=== PATIENT | male | born 1975 | race American Indian/Alaskan Native ===

== ENCOUNTER 2016-09-08 07:37 | Inpatient (IN) | payer OTHER ==
[2016-09-08 08:42] LABS: BUN/Creatinine Ratio 12.5; Calcium 9.2 mg/dL (8.4-10.2); Chloride 93.1 mmol/L (98-107); Potassium 5.1 mmol/L (3.6-5.0)
[2016-09-08 08:50] LABS: Basophils % (Auto) 0.8 % (0.0-1.8); Eosinophils % (Auto) 0.4 % (0.0-4.3); Hematocrit 45.7 % (35.5-45.6); Hemoglobin 14.8 gm/dl (11.8-15.2); Mean Corpuscular HGB Conc 32 % (32-34); Mean Corpuscular Hemoglobin 30 pg (28-32); Mean Corpuscular Volume 91 fl (84-94); Platelet Count 218 K/mm3 (140-440); Red Blood Count 5.01 M/mm3 (3.65-5.03); Red Cell Distribution Width 13.9 % (13.2-15.2); White Blood Count 5.5 K/mm3 (4.5-11.0)
[2016-09-08] MEDS ORDERED: D50W (25GM) IV PRN ×3 (10:58→11:57)
[2016-09-08] MEDS ORDERED: NACL 0.9% 1000 ML 1,000 ML IV ONE ×2 (10:59→13:00)
--- NOTE | 2016-09-08 11:00 | Emergency Department Report ---
ED General Adult HPI - General Chief complaint: Dyspnea/Respdistress Stated complaint: SIN/DIZZY Time Seen by Provider: 09/08/16 10:45 Source: patient, RN notes reviewed Mode of arrival: Ambulatory Limitations: No Limitations - History of Present Illness Initial comments: This is a 41-year-old male. He is previously unknown to me. He has a past medical history of diabetes and epilepsy. He does not have a local primary care doctor secondary to insurance reasons. He presents to the ER with fatigue, dizziness, weakness, polyuria, polydipsia. This is been going on for the past 3-4 days. His symptoms are constant. Worse with physical exertion. It decreased with rest. He is not having pain. -: Gradual Consistency: constant Improves with: rest Worsens with: movement Associated Symptoms: loss of appetite, malaise, shortness of breath, weakness. denies: confusion, chest pain - Related Data Home Medications Medication Instructions Recorded Confirmed Last Taken Dapagliflozin Propanediol [Farxiga] 10 mg PO DAILY 09/08/16 09/08/16 09/07/16 levETIRAcetam [Keppra TAB] 500 mg PO BID 09/08/16 09/08/16 09/07/16 Allergies Allergy/AdvReac Type Severity Reaction Status Date / Time No Known Allergies Allergy Unverified 09/08/16 07:46 ED Review of Systems ROS: Stated complaint: SIN/DIZZY Other details as noted in HPI Constitutional: malaise, weakness Eyes: denies: vision change ENT: denies: epistaxis Respiratory: denies: cough Cardiovascular: denies: chest pain Endocrine: increased thirst, increased urine Gastrointestinal: denies: abdominal pain Genitourinary: denies: dysuria Musculoskeletal: denies: back pain Skin: denies: lesions Neurological: weakness ED Past Medical Hx - Past Medical History Previous Medical History?: Yes Hx Hypertension: Yes Hx Diabetes: Yes Hx Arthritis: Yes (Right hip) Hx Asthma: Yes - Surgical History Past Surgical History?: No - Social History Smoking Status: Never Smoker Substance Use Type: Prescribed - Medications Home Medications: Home Medications Medication Instructions Recorded Confirmed Last Taken Type Dapagliflozin Propanediol [Farxiga] 10 mg PO DAILY 09/08/16 09/08/16 09/07/16 History levETIRAcetam [Keppra TAB] 500 mg PO BID 09/08/16 09/08/16 09/07/16 History ED Physical Exam - General Limitations: No Limitations General appearance: alert, in no apparent distress - Head Head exam: Present: atraumatic, normocephalic - Eye Eye exam: Present: normal appearance, EOMI. Absent: nystagmus - ENT ENT exam: Present: normal exam, normal orophraynx, mucous membranes moist, normal external ear exam - Neck Neck exam: Present: normal inspection, full ROM. Absent: tenderness, meningismus - Respiratory Respiratory exam: Present: normal lung sounds bilaterally. Absent: respiratory distress, wheezes, rales, rhonchi, stridor, chest wall tenderness, accessory muscle use, decreased breath sounds, prolonged expiratory - Cardiovascular Cardiovascular Exam: Present: regular rate, normal rhythm, normal heart sounds. Absent: systolic murmur, diastolic murmur, rubs, gallop - GI/Abdominal GI/Abdominal exam: Present: soft, normal bowel sounds. Absent: distended, tenderness, guarding, rebound, rigid, pulsatile mass - Rectal Rectal exam: Present: deferred - Extremities Exam Extremities exam: Present: normal inspection, full ROM, normal capillary refill. Absent: pedal edema, joint swelling, calf tenderness - Back Exam Back exam: Present: normal inspection, full ROM. Absent: tenderness, CVA tenderness (R), CVA tenderness (L), muscle spasm, paraspinal tenderness, vertebral tenderness - Neurological Exam Neurological exam: Present: alert, oriented X3, normal gait, other (Extraocular movements intact. Tongue midline. No facial droop. Facial sensation intact to light touch in the V1, V2, V3 distribution bilaterally. 5 and 5 strength in 4 extremities.. Sensation is intact to light touch in 4 extremities.). Absent : motor sensory deficit - Psychiatric Psychiatric exam: Present: normal affect, normal mood - Skin Skin exam: Present: warm, dry, intact, normal color. Absent: rash ED Course Vital Signs 09/08/16 09/08/16 09/08/16 07:46 11:22 13:46 Temperature 97.9 F 98.1 F 98.8 F Pulse Rate 95 H 66 76 Respiratory 18 16 16 Rate Blood Pressure 125/70 Blood Pressure 109/63 109/66 [Right] O2 Sat by Pulse 97 100 100 Oximetry 09/08/16 09/08/16 15:42 18:10 Temperature 98.9 F 98.4 F Pulse Rate 76 64 Respiratory 16 16 Rate Blood Pressure Blood Pressure 105/75 110/72 [Right] O2 Sat by Pulse 100 100 Oximetry ED Medical Decision Making - Lab Data Result diagrams: 09/08/16 08:05 09/08/16 11:18 Vital Signs 09/08/16 09/08/16 07:46 11:22 Temperature 97.9 F 98.1 F Pulse Rate 95 H 66 Respiratory 18 16 Rate Blood Pressure 125/70 Blood Pressure 109/63 [Right] O2 Sat by Pulse 97 100 Oximetry Lab Results 09/08/16 09/08/16 09/08/16 Range/Units 07:46 08:05 08:05 WBC 5.5 (4.5-11.0) K/mm3 RBC 5.01 (3.65-5.03) M/mm3 Hgb 14.8 (11.8-15.2) gm/dl Hct 45.7 H (35.5-45.6) % MCV 91 (84-94) fl MCH 30 (28-32) pg MCHC 32 (32-34) % RDW 13.9 (13.2-15.2) % Plt Count 218 (140-440) K/mm3 Lymph % (Auto) 40.4 H (13.4-35.0) % [place] % (Auto) 8.0 H (0.0-7.3) % Eos % (Auto) 0.4 (0.0-4.3) % Baso % (Auto) 0.8 (0.0-1.8) % Lymph # 2.2 (1.2-5.4) K/mm3 [place] # 0.4 (0.0-0.8) K/mm3 Eos # 0.0 (0.0-0.4) K/mm3 Baso # 0.0 (0.0-0.1) K/mm3 Seg Neutrophils % 50.4 (40.0-70.0) % Seg Neutrophils # 2.8 (1.8-7.7) K/mm3 VBG pH (7.320-7.420) Sodium 137 (137-145) mmol/L Potassium 5.1 H (3.6-5.0) mmol/L Chloride 93.1 L (98-107) mmol/L Carbon Dioxide 12 L (22-30) mmol/L Anion Gap 37 mmol/L BUN 20 (9-20) mg/dL Creatinine 1.6 H (0.8-1.5) mg/dL Estimated GFR 47 ml/min BUN/Creatinine Ratio 12.50 % Glucose 342 H (75-100) mg/dL POC Glucose 340 H (70-105) Calcium 9.2 (8.4-10.2) mg/dL Phosphorus (2.5-4.5) mg/dL Magnesium (1.7-2.3) mg/dL Urine Color (Yellow) Urine Turbidity (Clear) Urine pH (5.0-7.0) Ur Specific [place] (1.003-1.030) Urine Protein (Negative) mg/dL Urine Glucose (UA) (Negative) mg/dL Urine Ketones (Negative) mg/dL Urine Blood (Negative) Urine Nitrite (Negative) Urine Bilirubin (Negative) Urine Urobilinogen (<2.0) mg/dL Ur Leukocyte Esterase (Negative) Urine WBC (Auto) (0.0-6.0) /HPF Urine RBC (Auto) (0.0-6.0) /HPF Urine Mucus /HPF 09/08/16 09/08/16 09/08/16 Range/Units 08:05 10:47 11:15 WBC (4.5-11.0) K/mm3 RBC (3.65-5.03) M/mm3 Hgb (11.8-15.2) gm/dl Hct (35.5-45.6) % MCV (84-94) fl MCH (28-32) pg MCHC (32-34) % RDW (13.2-15.2) % Plt Count (140-440) K/mm3 Lymph % (Auto) (13.4-35.0) % [place] % (Auto) (0.0-7.3) % Eos % (Auto) (0.0-4.3) % Baso % (Auto) (0.0-1.8) % Lymph # (1.2-5.4) K/mm3 [place] # (0.0-0.8) K/mm3 Eos # (0.0-0.4) K/mm3 Baso # (0.0-0.1) K/mm3 Seg Neutrophils % (40.0-70.0) % Seg Neutrophils # (1.8-7.7) K/mm3 VBG pH 7.217 L (7.320-7.420) Sodium (137-145) mmol/L Potassium (3.6-5.0) mmol/L Chloride (98-107) mmol/L Carbon Dioxide (22-30) mmol/L Anion Gap mmol/L BUN (9-20) mg/dL Creatinine (0.8-1.5) mg/dL Estimated GFR ml/min BUN/Creatinine Ratio % Glucose (75-100) mg/dL POC Glucose 287 H (70-105) Calcium (8.4-10.2) mg/dL Phosphorus (2.5-4.5) mg/dL Magnesium (1.7-2.3) mg/dL Urine Color Straw (Yellow) Urine Turbidity Clear (Clear) Urine pH 5.0 (5.0-7.0) Ur Specific [place] 1.027 (1.003-1.030) Urine Protein <15 mg/dl (Negative) mg/dL Urine Glucose (UA) >=500 (Negative) mg/dL Urine Ketones 80 (Negative) mg/dL Urine Blood Sm (Negative) Urine Nitrite Neg (Negative) Urine Bilirubin Neg (Negative) Urine Urobilinogen < 2.0 (<2.0) mg/dL Ur Leukocyte Esterase Neg (Negative) Urine WBC (Auto) < 1.0 (0.0-6.0) /HPF Urine RBC (Auto) 2.0 (0.0-6.0) /HPF Urine Mucus Few /HPF 09/08/16 09/08/16 Range/Units 11:18 11:18 WBC (4.5-11.0) K/mm3 RBC (3.65-5.03) M/mm3 Hgb (11.8-15.2) gm/dl Hct (35.5-45.6) % MCV (84-94) fl MCH (28-32) pg MCHC (32-34) % RDW (13.2-15.2) % Plt Count (140-440) K/mm3 Lymph % (Auto) (13.4-35.0) % [place] % (Auto) (0.0-7.3) % Eos % (Auto) (0.0-4.3) % Baso % (Auto) (0.0-1.8) % Lymph # (1.2-5.4) K/mm3 [place] # (0.0-0.8) K/mm3 Eos # (0.0-0.4) K/mm3 Baso # (0.0-0.1) K/mm3 Seg Neutrophils % (40.0-70.0) % Seg Neutrophils # (1.8-7.7) K/mm3 VBG pH (7.320-7.420) Sodium 138 (137-145) mmol/L Potassium 5.0 (3.6-5.0) mmol/L Chloride 93.4 L (98-107) mmol/L Carbon Dioxide 10 L (22-30) mmol/L Anion Gap 40 mmol/L BUN 22 H (9-20) mg/dL Creatinine 1.6 H (0.8-1.5) mg/dL Estimated GFR 57 ml/min BUN/Creatinine Ratio 13.75 % Glucose 284 H (75-100) mg/dL POC Glucose (70-105) Calcium 9.1 (8.4-10.2) mg/dL Phosphorus 4.10 (2.5-4.5) mg/dL Magnesium 2.20 (1.7-2.3) mg/dL Urine Color (Yellow) Urine Turbidity (Clear) Urine pH (5.0-7.0) Ur Specific [place] (1.003-1.030) Urine Protein (Negative) mg/dL Urine Glucose (UA) (Negative) mg/dL Urine Ketones (Negative) mg/dL Urine Blood (Negative) Urine Nitrite (Negative) Urine Bilirubin (Negative) Urine Urobilinogen (<2.0) mg/dL Ur Leukocyte Esterase (Negative) Urine WBC (Auto) (0.0-6.0) /HPF Urine RBC (Auto) (0.0-6.0) /HPF Urine Mucus /HPF - EKG Data -: EKG Interpreted by Wy EKG shows normal: sinus rhythm, axis Rate: normal - EKG Data When compared to previous EKG there are: previous EKG unavailable 09/08/16 11:57. Normal sinus, 85 bpm, normal axis, QTC 487 ms, not morphologically consistent with STEMI. - Radiology Data Radiology results: report reviewed, image reviewed X-ray of the chest is negative for acute disease - Medical Decision Making Differential diagnosis: Dehydration, pneumonia, urinary tract infection, metabolic acidosis, diabetic ketoacidosis, hyperosmolar state Assessment and plan: 41-year-old male with relative hypoglycemia, anion gap acidosis, acidotic venous pH, most likely diabetic ketoacidosis. I appreciated the patient's finger sticks and blood glucose on the high 200s to low 300s, but his anion gaps have been 37 and 40 respectively, with serum bicarbonate of 12 and 10. Clinical picture suggestive of diabetic ketoacidosis. He will be started on the DKA pathway. Insulin bolus will be held, but he will be started on an insulin drip until his anion gap closes. X-ray of the chest negative, urinalysis negative, no pulmonary embolus or DVT risk factors, low risk by well' s criteria, perc negative. The case is presented to the Hospital physician, Dr. Levi, who accepts the patient to his service for DKA. Critical Care Time: Yes Critical care time in (mins) excluding proc time.: 35 Critical care attestation.: If time is entered above; I have spent that time in minutes in the direct care of this critically ill patient, excluding procedure time. Critical Care Time: Critical care time includes multiple bedside evaluations, interpretation of laboratory studies, radiology studies, time spent managing critically ill patient with anion gap acidosis consistent with diabetic ketoacidosis, requiring consultation with hospital medicine, and initiation of insulin drip. This does not include procedure time. ED Disposition Clinical Impression: DKA (diabetic ketoacidoses) Qualifiers: Diabetes mellitus type: due to underlying condition Diabetes mellitus complication detail: without coma Qualified Code(s): E08.10 - Diabetes mellitus due to underlying condition with ketoacidosis without coma Disposition: 09 OP ADMIT IP TO THIS HOSP Is pt being admited?: Yes Condition: Good
--- NOTE | 2016-09-08 11:09 | Admit Criteria Form ---
Admission Criteria Documentation: GENERAL ADMISSION CRITERIA (Place 'X' for any and all applicable criteria): Admission is indicated for ANY ONE of the following: [ ]I. Hemodynamic instability as indicated by ANY ONE of the following(1)(2) (3)(4)(5): [ ]a) Vital sign abnormality not readily corrected by appropriate treatment within 12 to 24 hours indicated by ANY ONE of the following: [ ]i) Hypotension [ ]ii) Symptomatic Tachycardia unresponsive to treatment (eg , analgesia, fluids, sedation as indicated) [ ]iii) Orthostatic vital sign changes unresponsive to treatment (eg, fluids) [ ]b) Vital sign abnormality that is severe indicated by ANY ONE of the following: [ ]i) Inadequate perfusion indicated by ANY ONE of the following: [ ]1) Lactic acidosis (greater than 2 mmol/L) [ ]2) New abnormal capillary refill (greater than 3 seconds) [ ]3) Other metabolic acidosis (arterial pH less than 7.35) not otherwise explained [ ]4) Reduced urine output [ ]5) Altered mental status [ ]6) Myocardial Ischemia [ ]v) Mean arterial pressure[A] less than 60 mm Hg [ ]vi) Mean arterial pressure[A] less than 70 mm Hg after 30 minutes of appropriate treatment (eg, fluid resuscitation) [ ]vii) IV inotropic or vasopressor medication required to maintain adequate blood pressure or perfusion [ ]viii) Sustained heart rate greater than 120 beats per minute in adult or child 6 years or older[B]] [ ]II. Hypertension requiring inpatient treatment as indicated by ANY ONE of the following(6)(7)(8): [ ]a) SBP greater than 220 mm Hg or DBP greater than 120 mm Hg despite treatment [ ]b) SBP greater than 140 mm Hg or DBP greater than 100 mm Hg with evidence of acute end organ damage as indicated by ANY ONE of the following: [ ]i) Encephalopathy [ ]ii) Acute renal failure as indicated by new onset of ANY ONE of the following(9)(10)(11)(12)(13): [ ]1) A 3-fold rise in serum creatinine from baseline [ ]2) Serum creatinine greater than 4 mg/dL ( 354 micromoles/L) with acute rise greater than 0.5 mg/dL (44.2 micromoles/L) [ ]3) Reduction of more than 75% in estimated glomerular filtration rate from baseline [ ]4) Estimated glomerular filtration rate less than 35 mL/min/1.73m2 (0.59 mL/sec/1.73m2) in child up to 18 years of age [ ]5) Cessation of urine output indicated by ALL of the following: [ ]A. Adequate volume status [ ]B. Inadequate urine output as indicated by ANY ONE of the following: [ ]a. Urine output less than 0.3 mL/kg/hr for 24 hours [ ]b. Anuria (urine output less than 0.1 mL/kg/hr) for 12 hours [ ]iii) Aortic dissection [ ]iv) Myocardial ischemia [ ]v) Left ventricular heart failure [ ]vi) Retinal hemorrhage [ ]vii) Other significant finding [ ]c) Hypertension in child requiring inpatient treatment as indicated by ALL of the following(14)(15)(16): [ ]i) Outpatient treatment not effective, not available, or not appropriate [ ]ii) SBP or DBP greater than 95th percentile for age [ ]iii) Evidence of acute end organ damage as indicated by ANY ONE of the following: [ ]1) Altered mental status [ ]2) Acute renal failure as indicated by new onset of ANY ONE of the following(9)(10)(11)(12)(13): [ ]A. A 3-fold rise in serum creatinine from baseline [ ]B. Serum creatinine greater than 4 mg/dL (354 micromoles/L) with acute rise greater than 0.5 mg/dL (44.2 micromoles/L) [ ]C. Reduction of more than 75% in estimated glomerular filtration rate from baseline [ ]D. Estimated glomerular filtration rate less than 35 mL/min/1.73m2 (0.59 mL/sec/1.73m2)in child up to 18 years of age [ ]E. Cessation of urine output indicated by ALL of the following: [ ]a. Adequate volume status [ ]b. Inadequate urine output as indicated by ANY ONE of the following: [ ]1) Urine output less than 0.3 mL/kg/hr for 24 hours [ ]2) Anuria (urine output less than 0.1 mL/kg/hr) for 12 hours [ ]3) Severe headache [ ]4) Visual disturbance [ ]5) Retinal hemorrhage [ ]6) Other significant finding [ ]III. Acute cardiac or peripheral ischemia as indicated by ANY ONE of the following: [ ]a) Acute coronary syndrome(17)(18) [ ]b) Acute peripheral ischemia (eg, pulseless, cool, mottled, or cyanotic extremity)(19) [ ]IV. Cardiac arrhythmias or findings of immediate concern indicated by ANY ONE of the following(20)(21): [ ]a) Heart rhythms that are inherently dangerous or unstable indicated by ANY ONE of the following(22)(23)(24): [ ]i) Resuscitated ventricular fibrillation or cardiac arrest [ ]ii) Ventricular escape rhythm [ ]iii) Sustained ventricular tachycardia (30 seconds or more of ventricular rhythm at greater than 100 beats per minute) [ ]iv) Nonsustained ventricular tachycardia and ANY ONE of the following: [ ]1) Suspected cardiac ischemia as cause or consequence of ventricular tachycardia [ ]2) In setting of acute myocarditis [ ]b) Unstable cardiac conduction defects indicated by ANY ONE of the following(24)(25)(26): [ ]i) Type II second-degree atrioventricular block [ ]ii) Third-degree atrioventricular block [ ]iii) New-onset left bundle branch block with suspected myocardial ischemia [ ]c) Any heart rhythm and ANY ONE of the following(22)(23)(27)(28)( 29): [ ] i) Continuous long-term ECG monitoring needed (eg, initiation of drug requiring monitoring for more than 24 hours) [ ] ii) Patient has automatic implanted cardioverter defibrillator that is repeatedly firing, malfunctioning, or in need of immediate adjustment of settings beyond the scope of ambulatory or observation care. [ ]d) Heart rhythms of concern due to ANY ONE of the following: [ ]i) Hypotension [ ]ii) Respiratory distress [ ]iii) Association with other significant symptoms (eg, bradycardia with syncope or ongoing dizziness, supraventricular tachycardia with chest pain) (27)(28) (30) [ ] V. Severe heart failure as indicated by ANY ONE of the following ( 31)(32): [ ]a) Respiratory distress [ ]b) Hypotension [ ]c) Anasarca (refractory to outpatient therapy) [ ]d) Cardiac arrhythmias of immediate concern [ ]e) Myocardial ischemia [ ]. Respiratory abnormalities, including ANY ONE of the following(33)(34) (35)(36): [ ]a) Respiratory rate greater than 30 breaths per minute unresponsive to treatment [A] [ ]b) New saturation of arterial oxygen less than 90% [ ]c) New partial pressure of carbon dioxide greater than 44 mm Hg ( 5.9 kPa) [ ]d) Supplemental oxygen or respiratory treatments needed that are new or not performable at other levels of care [ ]e) New-onset cyanosis [ ]f) Inability to protect airway [ ]g) Chronic lung disease with severe deterioration (not responsive to emergency and observation care treatment as appropriate) as indicated by ANY ONE of the following(34)(36 ): [ ]i) SaO2 5% below baseline in patient with chronic hypoxemia [ ]ii) New requirement for supplemental oxygen to keep SaO2 at baseline or acceptable level [ ]iii) Required supplemental oxygen performable only in acute inpatient setting [ ]iv) Severe airflow or ventilation abnormalities [ ]v) Previously mobile patient unable to walk between rooms [ ]vi Inability to eat or sleep due to dyspnea [ ]vii) Rapid rate of exacerbation onset [ ]viii) Altered mental status ]VII. Severe airflow or ventilation abnormalities (not responsive to emergency and observation care treatment as appropriate) as indicated by ANY ONE of the following(33)(34)(35)(37): [ ]a) PCO2 greater than 42 mm Hg (5.6 kPa) and pH less than 7.35 (new ) [ ]b) Documented PCO2 increased more than 5 mm Hg (0.7 kPa) from disease baseline [ ]c) Airflow measurements [B] less than 60% of previous best or predicted (eg, peak expiratory flow rate less than 300 L/minute) despite intensive emergent treatment [C] [ ]d) Required respiratory treatments that are performable only in acute inpatient setting [ ]VIII. Impending or actual respiratory arrest ( Also use Respiratory Failure GRG for severe respiratory disease and long-term mechanical ventilation patients) [ ]IX. Neurologic abnormalities, including ANY ONE of the following: [ ]a) New findings that suggest ANY ONE of the following: [ ]i) ROAD PATCHER infection(38) [ ]ii) Cerebral bleeding, ischemia, or vasospasm(39)(40) [ ]iii) Increased intracranial pressure, hydrocephalus, or cerebral edema(41)(42)(43) [ ]iv) Spinal cord injury(44) [ ]b) Uncontrolled seizures(45) [ ]c) New-onset coma (eg, Junior coma scale score less than 9) or unexplained abnormal mental status (eg, Junior coma scale score less than 14) [D](41)(46)(47) [ ]X. New-onset severe neurologic findings requiring inpatient care; examples include(42)(48)(49): [ ]a) Papilledema [ ]b) Cerebral edema [ ]c) Mass effect on CT scan [ ]XI. Suspected acute intra-abdominal process with peritoneal signs, abdominal mass, or similar findings (50)(51)(52) [X ]XII. Severe physiologic disorder remaining after emergency or observation level care (as appropriate) as indicated by ANY ONE of the following (53): [ ]a) Significant dehydration [ X]b) Diabetic ketoacidosis [ ]c) Hyperglycemic hyperosmolar state (eg, osmolality greater than 320 mOsm/kg (mmol/kg) [ ]d) Hypoglycemia [ ]e) Other (new) acid-base disorder with pH less than 7.35 or greater than 7.5(54) [ ]f) Thyroid storm (55) [ ]g) Myxedema coma (55) [ ]XIII. Abdominal abnormalities with ANY ONE of the following(56)(57): [ ]a) Absent bowel sounds with complete ileus [ ]b) Signs of intestinal obstruction or peritonitis [E] [ ]c) Nausea and vomiting that cannot be controlled with outpatient or observation care [ ]XIV. Acute renal failure as indicated by new onset of ANY ONE of the following(9)(10)(11)(12)(13): [ ]a) A 3-fold rise in serum creatinine from baseline [ ]b) Serum creatinine greater than 4 mg/dL (354 micromoles/L) with acute rise greater than 0.5 mg/dL (44.2 micromoles/L) [ ]c) Reduction of more than 75% in estimated glomerular filtration rate from baseline [ ]d) Estimated glomerular filtration rate less than 35 mL/min/ 1.73m2 (0.59 mL/sec/1.73m2) in child up to 18 years of age [ ]e) Cessation of urine output indicated by ALL of the following: [ ]i) Adequate volume status [ ]ii) Inadequate urine output as indicated by ANY ONE of the following: [ ]1) Urine output less than 0.3 mL/kg/hr for 24 hours [ ]2) Anuria (urine output less than 0.1 mL/kg/hr) for 12 hours [ ]XV. Significant uremic complications as indicated by ANY ONE of the following(58)(59)(60): [ ]a) Outpatient therapy is ineffective or not feasible for ANY ONE of the following: [ ]i) Severe heart failure [ ]ii) Severehypertension [ ]iii) Pleural effusion [ ]iv) Pericarditis or pericardial effusion [ ]b) Cardiac arrhythmias of immediate concern [ ]c) Intractable nausea or vomiting [ ]d) Recurrent seizures [ ]e) Encephalopathy [ ]f) Bleeding abnormalities (eg, platelet dysfunction) with active (eg, gastrointestinal) bleeding [ ]g) Dialysis indicated before long-term access or ambulatory arrangements can be made [ ]h) Significant metabolic or electrolyte abnormalities (eg, severe acidosis or hyperkalemia) [ ]XVI. High fever or other high-risk infection situation as indicated by ANY ONE of the following(61)(62)(63)(64): [ ]a) Outpatient and observation care antimicrobial treatment unavailable, not effective, or not appropriate [ ]b) Documented bacteremia [ ]c) Temperature greater than 40.5 degrees C (104.9 degrees F) ( oral) [ ]d) Temperature greater than 39.5 degrees C (103.1 degrees F) ( oral) or less than 36 degrees C (96.8 degrees F) (rectal) that does not respond to e treatment and observation care [ ] XVII. Temperature less than 95 degrees F (35 degrees C)(rectal)(65) [ ] XVIII. Severe nutritional abnormalities as indicated by ALL of the following (66)(67): [ ]a) Inability to tolerate or establish sufficient oral or other enteral nutrition in outpatient setting [ ]b) Parenteral nutrition regimen need that must be implemented on inpatient basis [ ] XIX. Severe electrolyte abnormalities indicated by ALL of the following(68) (69)(70): [ ]a) Electrolytes and associated findings are not as expected for patient baseline or acceptable treatment effects. [ ]b) Severe abnormalities indicated by ANY ONE of the following: [ ]i) Sodium less than 130 mEq/L (mmol/L) (new) [ ]ii)Sodium less than 135 mEq/L (mmol/L) with ANY ONE of the following: [ ]1) Uncorrectable (to near normal or chronic baseline) after trial of outpatient and emergency treatment [ ]2) Altered mental status [ ]3) Seizures [ ]4) Severe medical etiology requiring inpatient management (eg, heart failure, hypovolemia) [ ]iii) Sodium greater than 155 mEq/L (mmol/L) [ ]iv) Sodium greater than 150 mEq/L (mmol/L) with ANY ONE of the following: [ ]1) Uncorrectable (to near normal or chronic baseline) with outpatient and emergency treatment [ ]2) Altered mental status [ ]3) Seizures [ ]4) Severe medical etiology (eg, hypovolemia, diabetes insipidus) [ ]v) Potassium less than 2.5 mEq/L (mmol/L) despite outpatient and emergency treatment [ ]vi) Potassium less than 3 mEq/L (mmol/L) with ANY ONE of the following: [ ]1) Weakness [ ]2) Cardiac abnormality (eg, arrhythmia, conduction disturbance) [ ]3) Cardiac ischemia [ ]4) Ileus [ ]5) Ongoing medical cause requiring inpatient management (eg, acute renal wasting or SIADH) [ ]6) Other severe symptoms [ ]vii) Potassium greater than 6.5 mEq/L (mmol/L) [ ]viii) Potassium greater than 5 mEq/L (mmol/L) with ANY ONE of the following: [ ]1) Uncorrectable (to near normal or chronic baseline) with outpatient and emergency treatment [ ]2) Severe ECG findings [F] [ ]3) Acute worsening of renal failure (creatinine greater than 2.5 mg/dL (221 micromoles/L) or significant elevation for age and size) [ ]4) Severe weakness [ ]5) Severe medical etiology (eg, hemolysis, infection, drug overdose) [ ]ix) Calcium less than 7 mg/dL (1.75 mmol/L) despite outpatient and emergency treatment (72) [ ]x) Calcium less than 8 mg/dL (2 mmol/L) with significant symptoms or findings; examples include(72): [ ]1) Altered mental status [ ]2) Muscle spasms [ ]3) Seizures [ ]4) Breathing difficulty [ ]5) Cardiac abnormality (eg, arrhythmia or conduction disturbance) [ ]xi) Calcium greater than 14 mg/dL (3.5 mmol/L)(72) [ ]xii) Calcium greater than 12 mg/dL (3 mmol/L) with ANY ONE of the following(72): [ ]1) Uncorrectable (to near normal or chronic baseline) with outpatient and emergency treatment [ ]2) Significant dehydration or hypovolemia as indicated by ALL of the following(70)(73)(74): [ ]A. Not resolved with initial treatments [ ]B. Clinically significant dehydration as indicated by ANY ONE of the following: [ ]a. Vomiting refractory to outpatient treatment (ie, precluding oral rehydration) [ ]b. Inability to drink [ ]c. Hypernatremia or other electrolyte abnormality unable to be corrected with outpatient and emergency treatment [ ]d. Failure to remain hydrated with outpatient therapy [ ]e. Reduced urine output [ ]f. Hypotension [ ]g. Serious cause for dehydration requiring acute hospitalization (eg, bowel obstruction, increased intracranial pressure, infectious cause) [ ]h. Child with ANY ONE of the following(75): [ ]1) Severe abdominal tenderness [ ]2) Adequate care not available at home [ ]3) Severe dehydration ( greater than 9% loss of body weight) [ ]4) Significant symptoms or findings; examples include: [ ]A. Altered mental status [ ]B. Cardiac abnormality (eg, arrhythmia, conduction disturbance) [ ]C. Malignant etiology requiring inpatient treatment [ ]xiii) Phosphorus less than 1 mg/dL (0.32 mmol/L) [ ]xiv) Phosphorus less than 1.5 mg/dL (0.48 mmol/L) with ANY ONE of the following: [ ]1) Patient unresponsive to outpatient and emergency treatment [ ]2) Significant symptoms or findings; examples include: [ ]A. Weakness [ ]B. Altered mental status [ ]C. Breathing difficulty [ ]D. Seizures [ ]E. Rhabdomyolysis [ ]xv) Phosphorus greater than 10 mg/dL (3.2 mmol/L) [ ]xvi) Phosphorus greater than 4.5 mg/dL (1.45 mmol/L) (new) with ANY ONE of the following: [ ]1) Severe medical etiology (eg, crush injury, acute renal failure) [ ]2) Associated hypocalcemia with significant findings; examples include: [ ]A. Neurologic symptoms [ ]B. Altered mental status [ ]C. Muscle spasms [ ]D. Seizures [ ]E. Breathing difficulty [ ]F. Cardiac abnormality (eg, arrhythmia, conduction disturbance) [ ]xvii) Magnesium less than 1 mg/dL (0.41 mmol/L) [ ]xviii) Magnesium less than 1.5 mg/dL (0.62 mmol/L) with ANY ONE of the following: [ ]1) Patient unresponsive to outpatient and emergency treatment [ ]2) Associated hypocalcemia with significant findings; examples include: [ ]A. Altered mental status [ ]B. Muscle spasms [ ]C. Seizures [ ]D. Breathing difficulty [ ]E. Cardiac abnormality (eg, arrhythmia , conduction disturbance) [ ]3) Associated hypokalemia (potassium less than 3 mEq/L (mmol/L)) with risk of arrhythmia [ ]xix) Magnesium greater than 4 mEq/L (2 mmol/L) [ ]xx) Magnesium greater than 2.5 mEq/L (1.25 mmol/L) with significant symptoms or findings; examples include: [ ]1) Weakness [ ]2) Altered mental status [ ]3) Cardiac abnormality (eg, arrhythmia, conduction disturbance) [ ]4) Breathing difficulty [ ]5) Severe medical etiology (eg, renal failure, hypovolemia) [ ]xxi) Uric acid greater than 20 mg/dL (1190 micromoles/L)(76) [ ]xxii) Uric acid greater than 8 mg/dL (476 micromoles/L) with significant symptoms or findings of tumor lysis syndrome; examples include(76): [ ]1) Creatinine greater than 1.5 times upper limit of normal [ ]2) Cardiac abnormality (eg, arrhythmia, conduction disturbance) [ ]3) Seizure [ ]XX. Acute blood loss causing significant abnormality as indicated by ANY ONE of the following(77)(78): [ ]a) Hemoglobin less than 10 g/dL (100 g/L) (not baseline) [ ]b) Hematocrit less than 30% (0.30) (not baseline) [ ]c) Repeat hematocrit decreased more than 2% (0.02) [ ]d) Uncontrolled bleeding [ ]XXI. Severe anemia indicated by ANY ONE of the following(78)(79): [ ]a) Altered mental status [ ]b) Chest pain [ ]c) Exertional dyspnea [ ]d) Syncope [ ]e) Other findings suggesting inadequate perfusion [ ]f) Treatment with transfusion or volume replacement is ineffective at resolving ANY ONE of the following [G]: [ ]i) Tachycardia for age [ ]ii) Orthostatic vital sign changes as indicated by ANY ONE of the following(80): [ ]1) Fall in SBP of 20 mm Hg or more 1 to 3 minutes after patient sits or stands from recumbent position [ ]2) Fall in DBP of 10 mm Hg or more 1 to 3 minutes after patient sits or stands from recumbent position [ ]XXII. High-risk low platelet count as indicated by ANY ONE of the following( 81)(82): [ ]a) Severe or life-threatening bleeding (eg, intracranial, major gastrointestinal, or extensive mucosal bleeding), with any reduced platelet count [ ]b) Platelet count less than 20,000/mm3 (20 x109/L) with any active bleeding [ ]c) Platelet count less than 10,000/mm3 (10 x109/L) with minor purpura or petechiae [ ]d) Platelet count less than 5000/mm3 (5 x109/L) [ ]e) Low platelet count with hemolytic anemia [ ]XXIII. Disseminated intravascular coagulation(77)(83) [ ]XXIV. Severe adverse drug or systemic toxin reaction requiring inpatient treatment; examples include(84)(85): [ ]a) Serotonin syndrome(86) [ ]b) Neuroleptic malignant syndrome(86) [ ]c) Cholinergic syndrome with severe symptoms (eg, bronchorrhea, weakness, mental status changes, seizures) [ ]d) Sympathetic syndrome with severe symptoms (eg, seizures, mental status changes, cardiac dysrhythmias) [ ]e) Anticholinergic syndrome [ ]XXV. Severe pain requiring acute inpatient management as indicated by ALL of the following (87)(88)(89): [ ]a) Continuous or frequent (eg, every 2 to 4 hours) parenteral analgesics required [H] [ ]b) Rapid improvement expected from treatment or acute intervention (eg, surgery, anesthesia procedure) [ ]XXVI.Severe behavioral health issues judged unmanageable at a lower level of care (eg, residential) in a patient who is ANY ONE of the following(91) [ ]a) Acutely suicidal [ ]b) A danger to self (eg, self-mutilating or suicidal behavior) [ ]c) A danger to others (eg, assaultive or homicidal behavior) [ ]d) Incapacitated because of grave disability (eg, inability to provide for self at lower level of care) (92) [ ]XXVII. Inpatient monitoring needed; examples include(1)(3)(87)(93)(94)(95)(96 ): [ ]a) Vital signs, neurologic signs, or vascular checks more frequently than every 4 hours [ ]b) Cardiac or respiratory monitoring beyond the scope (eg, over 24 hours) of observation care [ ]c) Pulmonary artery catheter monitoring [ ]d) Suspected compartment syndrome(97) (98) [ ]e) Cerebral bleeding, hydrocephalus, or vasospasm monitoring [ ]f) Increased intracranial pressure or cerebral edema monitoring [ ]g) monitoring [ ]XXVIII. Treatment requiring inpatient care; examples include: [ ]a) IV fluid to replace significant ongoing losses (greater than 3 L/m2 per day)(53) [ ]b) High concentration oxygen (greater than 40%)(33)(99)(100) [ ]c) Frequent respiratory therapy (more frequently than every 4 hours) to maintain airflow rates greater than 60% of baseline(33)(99)(100) [ ]d) Epidural analgesia(87) [ ]e) IV anticoagulation, vasoactive, or antiarrhythmic medication(19 )(23) [ ]f) Acute thrombolytics (generally require 24 hours of observation )(101)(102) [ ]XXIX. Emergency procedures needed; examples include: [ ]a) Emergency inpatient surgery [ ]b) Temporary pacemaker placement(103) [ ]c) Chest tube placement with active evacuation (eg, suction, drainage)(104) [ ]d) Emergent cardioversion(105) [ ]e) Emergent cardiac or vascular procedures (eg, cardiac catheterization, angioplasty) (17)(18) [ ]f) Emergent dialysis access placement and institution(10)(106) [ ]g) Emergent pericardiocentesis(107) [ ]h) Emergent plasmapheresis or leukapheresis(83) [ ]i) Emergent tracheostomy The original [employer] content created by [employer] has been revised. The portions of the content which have been revised are identified through the use of italic text or in bold, and [employer] has neither reviewed nor approved the modified material. All other unmodified content is copyright [employer]. Please see references footnoted in the original [employer] edition 2016 Admission Criteria Met: Yes
[2016-09-08 11:10] LABS: Bilirubin,Urine NEG (Negative); Blood,Urine SM (Negative); Ketones,Urine 80 mg/dL (Negative); Leukocyte Esterase,Urine NEG (Negative); Mucus,Urine FEW /HPF; Nitrite,Urine NEG (Negative); Protein,Urine <15 mg/dL mg/dL (Negative); Urobilinogen,Urine < 2.0 mg/dL (<2.0); WBC,Urine < 1.0 /HPF (0.0-6.0)
--- NOTE | 2016-09-08 11:18 | XRay Report ---
AP CHEST: HISTORY: Short of breath AP view of the chest demonstrates a normal mediastinal and cardiac contour with clear lungs and normal bony and soft tissue structures. IMPRESSION: Unremarkable AP chest.
[2016-09-08 11:39] LABS: BUN/Creatinine Ratio 13.75; Calcium 9.1 mg/dL (8.4-10.2); Chloride 93.4 mmol/L (98-107); Magnesium 2.2 mg/dL (1.7-2.3); Phosphorous 4.1 mg/dL (2.5-4.5)
[2016-09-08] MEDS: NovoLIN R 100 UNITS in NACL 0.9% 99 ML IV SCH ×4 (11:40→17:44)
[2016-09-08] MEDS ORDERED: D5/0.45NS 1,000 ML IV ONE (11:42)
--- NOTE | 2016-09-08 11:56 | History and Physical Report ---
History of Present Illness Chief complaint: I feel sick, my sugar is out of control History of present illness: 41 YO Male with DM, HTN, OA, Asthma presents to ED for evaluation. Pt states that he has experienced polydipsia, polyuria, polypphagia, fatigue and nausea for the past 5 days with worsening symptoms over the past 1 day. Pt acknowledges medication noncompliance due to loss of insurance. Pt denies fever , chills, CP, Palpitations, syncope, vertigo, seizures, productive cough, skin rash, or recent ill contacts. Pt seen and evaluated in ED and found to be in DKA. DKA protocol initiated in ED. Past History Past Medical History: arthritis, diabetes, hypertension, other (seizure disorder ) Past Surgical History: No surgical history, Other (reviewed) Social history: . denies: smoking, alcohol abuse, prescription drug abuse, IV drug use Family history: diabetes, hypertension Medications and Allergies Allergies Allergy/AdvReac Type Severity Reaction Status Date / Time No Known Allergies Allergy Unverified 09/08/16 07:46 Active Meds: Active Medications Dextrose (D50w (25gm)) 0 ml IV PRN PRN PRN Reason: Hypoglycemia Sodium Chloride (Nacl 0.9% 1000 Ml) 1,000 mls @ 999 mls/hr IV BOLUS ONE Stop: 09/08/16 11:59 Last Admin: 09/08/16 11:19 Dose: 999 mls/hr Insulin Human Regular 100 (units/ Sodium Chloride) 100 mls @ 1 mls/hr IV TITR HARI; 1 UNITS/HR PRN Reason: Protocol Last Admin: 09/08/16 11:40 Dose: 5 units/hr, 5 mls/hr Review of Systems All systems: negative Constitutional: no fever Ears, nose, mouth and throat: no ear pain Cardiovascular: no chest pain Respiratory: no cough Gastrointestinal: nausea, no diarrhea Genitourinary Male: no dysuria Rectal: no pain Musculoskeletal: no neck stiffness Integumentary: no deferred Neurological: no head injury Psychiatric: no anxiety Endocrine: polyphagia, polydipsia, polyuria Hematologic/Lymphatic: no easy bruising Allergic/Immunologic: no urticaria Exam - Constitutional Vitals: Temp Pulse Resp BP Pulse Ox 98.1 F 66 16 109/63 100 09/08/16 11:22 09/08/16 11:22 09/08/16 11:22 09/08/16 11:22 09/08/16 11:22 General appearance: Present: mild distress - EENT Eyes: Present: PERRL ENT: hearing intact, clear oral mucosa - Neck Neck: Present: supple, normal ROM - Respiratory Respiratory effort: normal Respiratory: bilateral: CTA - Cardiovascular Heart Sounds: Present: S1 & S2. Absent: rub, click - Extremities Extremities: pulses symmetrical, No edema Peripheral Pulses: within normal limits - Abdominal General gastrointestinal: Present: soft, non-tender, non-distended, normal bowel sounds Male genitourinary: Present: normal - Integumentary Integumentary: Present: clear, dry, clammy, decreased turgor - Musculoskeletal Musculoskeletal: generalized weakness - Psychiatric Psychiatric: appropriate mood/affect, intact judgment & insight - Neurologic Neurologic: CNII-XII intact, moves all extremities Results - Labs CBC & Chem 7: 09/08/16 08:05 09/08/16 11:18 Labs: Abnormal lab results 09/08/16 09/08/16 09/08/16 Range/Units 07:46 08:05 08:05 Hct 45.7 H (35.5-45.6) % Lymph % (Auto) 40.4 H (13.4-35.0) % [place] % (Auto) 8.0 H (0.0-7.3) % VBG pH (7.320-7.420) Potassium 5.1 H (3.6-5.0) mmol/L Chloride 93.1 L (98-107) mmol/L Carbon Dioxide 12 L (22-30) mmol/L BUN (9-20) mg/dL Creatinine 1.6 H (0.8-1.5) mg/dL Glucose 342 H (75-100) mg/dL POC Glucose 340 H (70-105) 09/08/16 09/08/16 09/08/16 Range/Units 08:05 11:15 11:18 Hct (35.5-45.6) % Lymph % (Auto) (13.4-35.0) % [place] % (Auto) (0.0-7.3) % VBG pH 7.217 L (7.320-7.420) Potassium (3.6-5.0) mmol/L Chloride 93.4 L (98-107) mmol/L Carbon Dioxide 10 L (22-30) mmol/L BUN 22 H (9-20) mg/dL Creatinine 1.6 H (0.8-1.5) mg/dL Glucose 284 H (75-100) mg/dL POC Glucose 287 H (70-105) Assessment and Plan - Patient Problems (1) DKA (diabetic ketoacidoses) Current Visit: Yes Status: Acute Qualifiers: Diabetes mellitus type: due to underlying condition Diabetes mellitus complication detail: without coma Qualified Code(s): E08.10 - Diabetes mellitus due to underlying condition with ketoacidosis without coma Plan to address problem: DKA protocol: IVF, Insulin drip, monitor anion gap, serial bmp, moitor uop q shift, The high probability of a clinically significant, sudden or life threatening deterioration of the [endocrine, renal, pulmonary] system(s) required my full and direct attention, intervention and personal management. The aggregate critical care time was [65] minutes. This time is in addition to time spent performing reported procedures but includes the following: [x] Data Review and interpretation [x] Patient assessment and monitoring of vital signs [x] Documentation [x] Medication orders and management (2) Metabolic acidosis Current Visit: Yes Status: Acute Plan to address problem: IVF replacement, treat DKA, serial bmp, (3) ARF (acute renal failure) Current Visit: Yes Status: Acute Qualifiers: Acute renal failure type: A Plan to address problem: IVF replacement, monitor uop q shift, supportive care, repeat bmp, (4) Noncompliance Current Visit: Yes Status: Acute Plan to address problem: Pt counseled regarding ADA diet, carbohydrate counting, and medication compliance. (5) DVT prophylaxis Current Visit: Yes Status: Acute
[2016-09-08] MEDS ORDERED: NovoLIN R 100 UNITS in NACL 0.9% 99 ML IV SCH (12:00)
[2016-09-08] MEDS: D5/0.45NS 1,000 ML IV SCH ×2 (13:44→21:33)
[2016-09-08 20:37] LABS: Blood Urea Nitrogen 15 mg/dL (9-20); Calcium 8.4 mg/dL (8.4-10.2); Carbon Dioxide 18 mmol/L (22-30); Chloride 104.8 mmol/L (98-107); Glucose 111 mg/dL (75-100); Potassium 4.1 mmol/L (3.6-5.0); Sodium 143 mmol/L (137-145)
[2016-09-08 20:38] LABS: Anion Gap 24 mmol/L
[2016-09-08 23:18] LABS: Anion Gap 24 mmol/L; BUN/Creatinine Ratio 12.72; Blood Urea Nitrogen 14 mg/dL (9-20); Calcium 8.4 mg/dL (8.4-10.2); Carbon Dioxide 16 mmol/L (22-30); Chloride 106.5 mmol/L (98-107); Glucose 112 mg/dL (75-100); Potassium 3.8 mmol/L (3.6-5.0); Sodium 143 mmol/L (137-145)
[2016-09-09 04:31] LABS: Anion Gap 20 mmol/L; BUN/Creatinine Ratio 10.83; Blood Urea Nitrogen 13 mg/dL (9-20); Calcium 8.3 mg/dL (8.4-10.2); Carbon Dioxide 19 mmol/L (22-30); Chloride 107.8 mmol/L (98-107); Glucose 104 mg/dL (75-100); Potassium 3.8 mmol/L (3.6-5.0); Sodium 143 mmol/L (137-145)
[2016-09-09] MEDS: D5/0.45NS 1,000 ML IV SCH (04:58)
[2016-09-09] MEDS ORDERED: D5/0.45NS 1,000 ML with KCL 20 MEQ IV SCH (11:30)
--- NOTE | 2016-09-09 11:38 | Consultation ---
History of Present Illness - Reason for Consult Consult date: 09/09/16 DKA/ICU care Requesting physician: FLAKITA LITTLEJOHN - History of Present Illness 41 y/o male admitted with DKA Past History Past Medical History: arthritis, diabetes, hypertension, other (seizure disorder ) Past Surgical History: No surgical history, Other (reviewed) Social history: . denies: smoking, alcohol abuse, prescription drug abuse, IV drug use Family history: diabetes, hypertension Medications and Allergies Allergies Allergy/AdvReac Type Severity Reaction Status Date / Time No Known Allergies Allergy Unverified 09/08/16 07:46 Home Medications Medication Instructions Recorded Confirmed Last Taken Type Dapagliflozin Propanediol [Farxiga] 10 mg PO DAILY 09/08/16 09/08/16 09/07/16 History levETIRAcetam [Keppra TAB] 500 mg PO BID 09/08/16 09/08/16 09/07/16 History Active Meds: Active Medications Dextrose (D50w (25gm)) 0 ml IV PRN PRN PRN Reason: Hypoglycemia Insulin Human Regular 100 (units/ Sodium Chloride) 100 mls @ 1 mls/hr IV TITR HARI; 1 UNITS/HR PRN Reason: Protocol Potassium Chloride 20 meq/ (Dextrose/Sodium Chloride) 1,010 mls @ 150 mls/hr IV DIRECT HARI Review of Systems All systems: negative Exam - Constitutional Vitals: Temp Pulse Resp BP Pulse Ox 98.4 F 59 L 19 113/67 99 09/09/16 08:00 09/09/16 11:10 09/09/16 11:10 09/09/16 11:10 09/09/16 11:10 Results - Labs CBC & Chem 7: 09/08/16 08:05 09/09/16 03:56 Labs: Abnormal lab results 09/08/16 09/08/16 09/08/16 Range/Units 12:37 13:42 14:39 Chloride (98-107) mmol/L Carbon Dioxide (22-30) mmol/L Glucose (75-100) mg/dL POC Glucose 277 H 206 H 168 H (70-105) Calcium (8.4-10.2) mg/dL 09/08/16 09/08/16 09/08/16 Range/Units 15:38 16:36 17:42 Chloride (98-107) mmol/L Carbon Dioxide (22-30) mmol/L Glucose (75-100) mg/dL POC Glucose 144 H 237 H 186 H (70-105) Calcium (8.4-10.2) mg/dL 09/08/16 09/08/16 09/08/16 Range/Units 18:42 19:17 20:08 Chloride (98-107) mmol/L Carbon Dioxide 18 L D (22-30) mmol/L Glucose 111 H (75-100) mg/dL POC Glucose 130 H 111 H (70-105) Calcium (8.4-10.2) mg/dL 09/08/16 09/08/16 09/08/16 Range/Units 21:03 22:15 22:28 Chloride (98-107) mmol/L Carbon Dioxide 16 L (22-30) mmol/L Glucose 112 H (75-100) mg/dL POC Glucose 114 H 121 H (70-105) Calcium (8.4-10.2) mg/dL 09/08/16 09/08/16 09/09/16 Range/Units 23:12 23:55 01:12 Chloride (98-107) mmol/L Carbon Dioxide (22-30) mmol/L Glucose (75-100) mg/dL POC Glucose 115 H 121 H 112 H (70-105) Calcium (8.4-10.2) mg/dL 09/09/16 09/09/16 09/09/16 Range/Units 02:19 03:56 04:04 Chloride 107.8 H (98-107) mmol/L Carbon Dioxide 19 L (22-30) mmol/L Glucose 104 H (75-100) mg/dL POC Glucose 117 H 117 H (70-105) Calcium 8.3 L (8.4-10.2) mg/dL 09/09/16 09/09/16 09/09/16 Range/Units 05:11 07:43 09:56 Chloride (98-107) mmol/L Carbon Dioxide (22-30) mmol/L Glucose (75-100) mg/dL POC Glucose 120 H 143 H 141 H (70-105) Calcium (8.4-10.2) mg/dL - Imaging and Cardiology Chest x-ray: image reviewed (clear) Assessment and Plan 41 y/o male with DKA 1. Anion Gap has closed. Start long acting insulin, feed patient and stop insulin drip 2. Daily chemistries, suggest FSBS qAC AND HS 3. Stable for transfer out of ICU CCT 31 minutes.
[2016-09-09 14:04] LABS: Anion Gap 21 mmol/L; Blood Urea Nitrogen 11 mg/dL (9-20); Calcium 8.6 mg/dL (8.4-10.2); Carbon Dioxide 20 mmol/L (22-30); Chloride 105.5 mmol/L (98-107); Glucose 113 mg/dL (75-100); Potassium 3.9 mmol/L (3.6-5.0); Sodium 143 mmol/L (137-145)
[2016-09-09] MEDS ORDERED: TYLENOL PO PRN (14:34)
[2016-09-09] MEDS ORDERED: AMBIEN PO PRN (14:34)
[2016-09-09] MEDS ORDERED: ZOFRAN IV PRN (14:34)
--- NOTE | 2016-09-09 14:40 | Progress Note ---
Assessment and Plan Assessment and plan: Patient is a 41-year-old man with a history of type 2 diabetes mellitus, hypertension, arthritis, seizure disorder and asthma who presented with uncontrolled blood sugars. He was found to have ketones in the urine, acidotic and blood sugars over 250; therefore, he qualify for DKA, was treated with IV insulin drip and admitted to the ICU. He was seen by timing machine operator who has cleared to transfer out of the ICU and transition from insulin drip. -DKA: Start long-acting insulin with bolus therapy -Type 2 diabetes mellitus now type1: Counseling done no more oral anti-glycemic (Farxigo), requiring insulin now -High anion gap metabolic acidosis improving: Continue IV fluids and control of blood sugars -Seizure disorder: Restart Keppra -DVT prophylaxis: Added subcutaneous heparin History Interval history: Patient seen and examined. Follow up on uncontrolled diabetes. Overnight uneventful. No cp, sob, n/v or severe headaches. Imaging, old records, testing, labs, nursing notes reviewed. Hospitalist Physical - Physical exam Narrative exam: GEN: WDWN, NAD, AWAKE, ALERT, ORIENTATED x 3 HEENT: NCAT, PERRL, EOMI, OP CLEAR NECK: SUPPLE, NO THYROMEGALY, NO JVD, NO LAD CVS: RRR, NORMAL S1S2 LUNGS/CHEST: CTA B, NORMAL CHEST EXPANSION B, GOOD AIR ENTRY B ABD: SOFT, NTND, GBS, NO REBOUND OR GUARDING EXT/SKIN: NO SIGNIFICANT EDEMA OR RASH MSK: FROM X 4 EXTREMITIES NEURO: CN 2-12 GROSSLY INTACT, NO FOCAL DEFICITS PSY: CALM - Constitutional Vitals: Temp Pulse Resp BP Pulse Ox 98.4 F 59 L 19 113/67 99 09/09/16 08:00 09/09/16 11:10 09/09/16 11:10 09/09/16 11:10 09/09/16 11:10 Results - Labs CBC & Chem 7: 09/08/16 08:05 09/09/16 13:26 Labs: Laboratory Last Values WBC 5.5 K/mm3 (4.5-11.0) 09/08/16 08:05 RBC 5.01 M/mm3 (3.65-5.03) 09/08/16 08:05 Hgb 14.8 gm/dl (11.8-15.2) 09/08/16 08:05 Hct 45.7 % (35.5-45.6) H 09/08/16 08:05 MCV 91 fl (84-94) 09/08/16 08:05 MCH 30 pg (28-32) 09/08/16 08:05 MCHC 32 % (32-34) 09/08/16 08:05 RDW 13.9 % (13.2-15.2) 09/08/16 08:05 Plt Count 218 K/mm3 (140-440) 09/08/16 08:05 Lymph % (Auto) 40.4 % (13.4-35.0) H 09/08/16 08:05 [place] % (Auto) 8.0 % (0.0-7.3) H 09/08/16 08:05 Eos % (Auto) 0.4 % (0.0-4.3) 09/08/16 08:05 Baso % (Auto) 0.8 % (0.0-1.8) 09/08/16 08:05 Lymph # 2.2 K/mm3 (1.2-5.4) 09/08/16 08:05 [place] # 0.4 K/mm3 (0.0-0.8) 09/08/16 08:05 Eos # 0.0 K/mm3 (0.0-0.4) 09/08/16 08:05 Baso # 0.0 K/mm3 (0.0-0.1) 09/08/16 08:05 Seg Neutrophils % 50.4 % (40.0-70.0) 09/08/16 08:05 Seg Neutrophils # 2.8 K/mm3 (1.8-7.7) 09/08/16 08:05 VBG pH 7.217 (7.320-7.420) L 09/08/16 08:05 Sodium 143 mmol/L (137-145) 09/09/16 13:26 Potassium 3.9 mmol/L (3.6-5.0) 09/09/16 13:26 Chloride 105.5 mmol/L (98-107) 09/09/16 13:26 Carbon Dioxide 20 mmol/L (22-30) L 09/09/16 13:26 Anion Gap 21 mmol/L 09/09/16 13:26 BUN 11 mg/dL (9-20) 09/09/16 13:26 Creatinine 1.1 mg/dL (0.8-1.5) 09/09/16 13:26 Estimated GFR > 60 ml/min 09/09/16 13:26 BUN/Creatinine Ratio 10.00 % 09/09/16 13:26 Glucose 113 mg/dL (75-100) H 09/09/16 13:26 POC Glucose 141 (70-105) H 09/09/16 09:56 Hemoglobin A1c 19.0 % (4-6) H 09/08/16 11:18 Calcium 8.6 mg/dL (8.4-10.2) 09/09/16 13:26 Phosphorus 4.10 mg/dL (2.5-4.5) 09/08/16 11:18 Magnesium 2.20 mg/dL (1.7-2.3) 09/08/16 11:18 Urine Color Straw (Yellow) 09/08/16 10:47 Urine Turbidity Clear (Clear) 09/08/16 10:47 Urine pH 5.0 (5.0-7.0) 09/08/16 10:47 Ur Specific [place] 1.027 (1.003-1.030) 09/08/16 10:47 Urine Protein <15 mg/dl mg/dL (Negative) 09/08/16 10:47 Urine Glucose (UA) >=500 mg/dL (Negative) 09/08/16 10:47 Urine Ketones 80 mg/dL (Negative) 09/08/16 10:47 Urine Blood Sm (Negative) 09/08/16 10:47 Urine Nitrite Neg (Negative) 09/08/16 10:47 Urine Bilirubin Neg (Negative) 09/08/16 10:47 Urine Urobilinogen < 2.0 mg/dL (<2.0) 09/08/16 10:47 Ur Leukocyte Esterase Neg (Negative) 09/08/16 10:47 Urine WBC (Auto) < 1.0 /HPF (0.0-6.0) 09/08/16 10:47 Urine RBC (Auto) 2.0 /HPF (0.0-6.0) 09/08/16 10:47 Urine Mucus Few /HPF 09/08/16 10:47
[2016-09-09] MEDS: LEVEMIR SUB-Q SCH (15:09)
[2016-09-09] MEDS: PROTONIX PO SCH (15:15)
[2016-09-09] MEDS: NACL 0.9% 1000 ML 1,000 ML IV SCH (15:48)
[2016-09-09] MEDS: NOVOLOG SUB-Q SCH ×2 (15:56→16:56)
[2016-09-09] MEDS: KEPPRA PO SCH (22:40)
[2016-09-10] MEDS: NOVOLOG SUB-Q SCH ×3 (00:34→12:20)
[2016-09-10] MEDS: NACL 0.9% 1000 ML 1,000 ML IV SCH (04:08)
[2016-09-10 05:29] LABS: Anion Gap 23 mmol/L; BUN/Creatinine Ratio 8.18; Blood Urea Nitrogen 9 mg/dL (9-20); Calcium 8.5 mg/dL (8.4-10.2); Carbon Dioxide 19 mmol/L (22-30); Chloride 106.5 mmol/L (98-107); Glucose 164 mg/dL (75-100); Potassium 3.6 mmol/L (3.6-5.0); Sodium 145 mmol/L (137-145)
[2016-09-10] MEDS: PROTONIX PO SCH (09:58)
[2016-09-10] MEDS: KEPPRA PO SCH (09:58)
[2016-09-10] MEDS: LEVEMIR SUB-Q SCH (09:59)
--- NOTE | 2016-09-10 11:50 | Discharge Summary ---
Providers - Providers Date of Admission: 09/08/16 11:57 Date of discharge: 09/10/16 Attending physician: LAURA ARENAS Primary care physician: TRAM OPERATOR Hospitalization Condition: Good Hospital course: Patient is a 41-year-old man with a history of type 2 diabetes mellitus, hypertension, arthritis, seizure disorder and asthma who presented with uncontrolled blood sugars. He was found to have ketones in the urine, acidotic and blood sugars over 250; therefore, he qualify for DKA, was treated with IV insulin drip and admitted to the ICU. He was seen by returned goods sorter who has cleared to transfer out of the ICU and transition from insulin drip. -DKA: Start long-acting insulin with bolus therapy -Acute renal failure, vasomotor nephropathy present on admission resolving: BMP a.m. -Type 2 diabetes mellitus now type1: Counseling done no more oral anti-glycemic (Farxigo), requiring insulin now -High anion gap metabolic acidosis improving: Continue IV fluids and control of blood sugars -Seizure disorder: Restart Keppra -DVT prophylaxis: Added subcutaneous heparin A1c done on 09/08/16 was an astonishing 19.0 Disposition: DC-30 STILL A PATIENT Time spent for discharge: 36 minutes Core Measure Documentation - Palliative Care Palliative Care/ Comfort Measures: Not Applicable - Core Measures Any of the following diagnoses?: none - VTE Discharge Requirements Deep Vein Thrombosis/Pulmonary Embolism Present on Admission: No Has pt received <5 days of overlap therapy or INR<2.0: No Anticoagulant overlap therapy prescribed at discharge: No Contraindication No Overlap Therapy order at DC: Not Indicated Exam - Physical Exam Narrative exam: GEN: WDWN, NAD, AWAKE, ALERT, ORIENTATED x 3 HEENT: NCAT, PERRL, EOMI, OP CLEAR NECK: SUPPLE, NO THYROMEGALY, NO JVD, NO LAD CVS: RRR, NORMAL S1S2 LUNGS/CHEST: CTA B, NORMAL CHEST EXPANSION B, GOOD AIR ENTRY B ABD: SOFT, NTND, GBS, NO REBOUND OR GUARDING EXT/SKIN: NO SIGNIFICANT EDEMA OR RASH MSK: FROM X 4 EXTREMITIES NEURO: CN 2-12 GROSSLY INTACT, NO FOCAL DEFICITS PSY: CALM - Constitutional Vitals: Temp Pulse Resp BP Pulse Ox 98.2 F 72 18 127/75 98 09/10/16 07:06 09/10/16 07:06 09/10/16 07:06 09/10/16 07:06 09/10/16 07:06 Plan Activity: no driving until cleared by PCP, other (no strenous activites until cleared by PCP. ) Diet: low salt, diabetic Special Instructions: record blood sugar diary (Three times a day before meals and at bedtime) Follow up with: PRIMARY CARE,MD [Primary Care Provider] - 3-5 Days Prescriptions: Insulin Aspart [NovoLOG Flexpen] 1 dose SQ AC #1 pen Insulin Detemir [Levemir] 10 units SUB-Q DAILY #1 mo levETIRAcetam [Keppra TAB] 500 mg PO BID #60 tablet
[2016-09-10] MEDS ORDERED: HEPARIN SUB-Q SCH (14:36)
[2016-09-10 15:35] VITALS: BP 122/80
== END 2016-09-10 17:10 | disposition home or self-care (01) | DRG 682 ==
LOC: ED 07:37 → CC1 11:57 → 3A 09-09 18:36
PROVIDERS: ADMIT Internal Medicine; ATTEND Internal Medicine
DX: N17.0 Acute kidney failure with tubular necrosis (principal); E08.10 Diabetes mellitus due to underlying condition with ketoacidosis without coma; I10 Essential (primary) hypertension; M19.90 Unspecified osteoarthritis, unspecified site; G40.909 Epilepsy, unspecified, not intractable, without status epilepticus; Z82.49 Family history of ischemic heart disease and other diseases of the circulatory system; Z83.3 Family history of diabetes mellitus; Z91.19 Patient's noncompliance with other medical treatment and regimen; Z71.3 Dietary counseling and surveillance
CPT/HCPCS: 36415; 71010; 80048; 81001; 82805; 82962; 83036; 83735; 84100; 85025; 93005; 93010; 96360; 96361; 99291; J1815; J1818; J3480; J7030

== ENCOUNTER 2016-09-19 12:05 | Inpatient (IN) | payer OTHER ==
[2016-09-19] MEDS ORDERED: NACL 0.9% 1000 ML 1,000 ML IV ONE ×2 (13:02→14:04)
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
[2016-09-19 13:29] LABS: Basophils % (Auto) 1.2 % (0.0-1.8); Mean Corpuscular HGB Conc 31 % (32-34); Mean Corpuscular Hemoglobin 29 pg (28-32); Mean Corpuscular Volume 93 fl (84-94); Platelet Count 248 K/mm3 (140-440); Red Blood Count 5.49 M/mm3 (3.65-5.03); Red Cell Distribution Width 14.6 % (13.2-15.2); White Blood Count 13.3 K/mm3 (4.5-11.0)
[2016-09-19 13:31] LABS: Hematocrit 50.9 % (35.5-45.6); Hemoglobin 15.7 gm/dl (11.8-15.2)
[2016-09-19 13:50] LABS: Urine Drugs of Abuse Note Disclamer
[2016-09-19 13:52] LABS: Albumin 4.5 g/dL (3.9-5); Albumin/Globulin Ratio 1.2 %; BUN/Creatinine Ratio 14.4; Bilirubin,Total 0.2 mg/dL (0.1-1.2); Calcium 9.6 mg/dL (8.4-10.2); Chloride 93.1 mmol/L (98-107); Total Protein 8.4 g/dL (6.3-8.2)
[2016-09-19 13:58] LABS: Potassium 6.1 mmol/L (3.6-5.0)
[2016-09-19 14:02] LABS: Bacteria,Urine 1+ /HPF (Negative); Bilirubin,Urine NEG (Negative); Blood,Urine MOD (Negative); Ketones,Urine 80 mg/dL (Negative); Leukocyte Esterase,Urine NEG (Negative); Mucus,Urine FEW /HPF; Nitrite,Urine NEG (Negative); Urobilinogen,Urine < 2.0 mg/dL (<2.0)
[2016-09-19] MEDS ORDERED: D50W (25GM) Syringe IV PRN ×2 (14:04→17:26)
--- NOTE | 2016-09-19 14:16 | Cat Scan Report ---
FINAL REPORT PROCEDURE: CT HEAD/BRAIN WO CON TECHNIQUE: Computerized tomography of the head was performed without contrast material. HISTORY: Seizure COMPARISON: No prior studies are available for comparison. FINDINGS: Skull and scalp: Normal. Paranasal sinuses: Normal. Ventricles and subarachnoid spaces: Normal. Cerebrum: No evidence of hemorrhage, acute infarction or mass . Cerebellum and brainstem: No evidence of hemorrhage, acute infarction or mass. Vasculature: Normal. Comments: Parafalcine calcifications anteriorly and prominent para dural calcifications upper head and anterior frontal region right temporal region IMPRESSION: No acute disease
[2016-09-19 15:18] LABS: Calcium 8.9 mg/dL (8.4-10.2); Chloride 101.1 mmol/L (98-107)
[2016-09-19 15:19] LABS: Magnesium 2.6 mg/dL (1.7-2.3); Phosphorous 6.5 mg/dL (2.5-4.5)
[2016-09-19] MEDS: NovoLIN R 100 UNITS in NACL 0.9% 99 ML IV SCH ×3 (15:24→18:55)
[2016-09-19 16:02] LABS: Potassium 6.1 mmol/L (3.6-5.0)
[2016-09-19 16:40] LABS: ISTAT Base Excess -27; ISTAT DEVICE 0; ISTAT HCO3 3.2; ISTAT PCO2 11.4 (35-45); ISTAT PH 7.051 (7.35-7.45); ISTAT PO2 136 (80-105); ISTAT SO2 98; ISTAT TCO2 < 5
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
[2016-09-19] MEDS ORDERED: ALUM-MAG HYDROX-SIMETH 200-200-20MG/5ML PO PRN (17:18)
[2016-09-19] MEDS ORDERED: MILK OF MAGNESIA PO PRN (17:18)
[2016-09-19] MEDS ORDERED: DULCOLAX PR PRN (17:18)
[2016-09-19 17:31] LABS: BUN/Creatinine Ratio 15.45; Calcium 9.4 mg/dL (8.4-10.2); Chloride 103.9 mmol/L (98-107)
[2016-09-19] MEDS ORDERED: NovoLIN R 100 UNITS in NACL 0.9% 99 ML IV SCH (18:00)
[2016-09-19] MEDS ORDERED: LEVEMIR SUB-Q SCH ×2 (18:00)
[2016-09-19 18:52] LABS: Basophils % (Auto) 0.5 % (0.0-1.8); Hemoglobin 15.9 gm/dl (11.8-15.2); Mean Corpuscular HGB Conc 32 % (32-34); Mean Corpuscular Hemoglobin 29 pg (28-32); Mean Corpuscular Volume 90 fl (84-94); Platelet Count 270 K/mm3 (140-440); Red Blood Count 5.56 M/mm3 (3.65-5.03); White Blood Count 11.2 K/mm3 (4.5-11.0)
[2016-09-19 19:10] LABS: BUN/Creatinine Ratio 16.5; Calcium 9.9 mg/dL (8.4-10.2); Chloride 108.2 mmol/L (98-107); Magnesium 2.6 mg/dL (1.7-2.3); Phosphorous 2.1 mg/dL (2.5-4.5); Potassium 4.9 mmol/L (3.6-5.0)
[2016-09-19] MEDS: D5W/0.45% NACL/KCL 20 MEQ 20 MEQ/1,000 ML BAG IV SCH (20:55)
[2016-09-19 22:30] LABS: BUN/Creatinine Ratio 17.5; Calcium 9.8 mg/dL (8.4-10.2); Chloride 109.7 mmol/L (98-107); Potassium 4.8 mmol/L (3.6-5.0)
[2016-09-19 23:24] LABS: BUN/Creatinine Ratio 16.5; Calcium 10.1 mg/dL (8.4-10.2); Chloride 108.7 mmol/L (98-107); Potassium 5.4 mmol/L (3.6-5.0)
[2016-09-19] MEDS: KEPPRA PO SCH (23:31)
[2016-09-20] MEDS: D5W/0.45% NACL/KCL 20 MEQ 20 MEQ/1,000 ML BAG IV SCH ×3 (05:10→19:53)
[2016-09-20 06:46] LABS: BUN/Creatinine Ratio 17.64; Calcium 10.1 mg/dL (8.4-10.2); Chloride 113.4 mmol/L (98-107)
[2016-09-20 07:38] LABS: Potassium 5.2 mmol/L (3.6-5.0)
[2016-09-20 08:01] LABS: BUN/Creatinine Ratio 18.12; Calcium 10.2 mg/dL (8.4-10.2); Chloride 115.1 mmol/L (98-107); Potassium 4.3 mmol/L (3.6-5.0)
[2016-09-20] MEDS: KEPPRA PO SCH ×2 (09:29→23:45)
[2016-09-20 11:03] LABS: Anion Gap TNR mmol/L; BUN/Creatinine Ratio TNR; Blood Urea Nitrogen TNR mg/dL (9-20); Calcium TNR mg/dL (8.4-10.2); Carbon Dioxide TNR mmol/L (22-30); Chloride TNR mmol/L (98-107); Glucose TNR mg/dL (75-100); Potassium TNR mmol/L (3.6-5.0); Sodium TNR mmol/L (137-145)
[2016-09-20 11:41] LABS: Anion Gap TNR mmol/L; Carbon Dioxide TNR mmol/L (22-30); Chloride TNR mmol/L (98-107); Potassium TNR mmol/L (3.6-5.0); Sodium TNR mmol/L (137-145)
[2016-09-20 11:42] LABS: BUN/Creatinine Ratio TNR; Blood Urea Nitrogen TNR mg/dL (9-20); Calcium TNR mg/dL (8.4-10.2); Glucose TNR mg/dL (75-100)
[2016-09-20 12:02] LABS: BUN/Creatinine Ratio 19.37; Calcium 9.7 mg/dL (8.4-10.2); Chloride 114.3 mmol/L (98-107); Potassium 4.3 mmol/L (3.6-5.0)
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
[2016-09-20] MEDS ORDERED: SODIUM PHOSPHATE 30 MMOL in NACL 0.9% 500 ML 500 ML IV ONE (13:30)
[2016-09-20 15:09] LABS: BUN/Creatinine Ratio 17.05; Calcium 9.8 mg/dL (8.4-10.2); Chloride 112.2 mmol/L (98-107)
--- NOTE | 2016-09-20 15:56 | Event Note ---
Date: 09/20/16 Asked to see for ICU admission needing IV insulin therapy Downgraded as he is off IV insulin now ...will sign off
[2016-09-20] MEDS ORDERED: PROVENTIL IH PRN (17:13)
[2016-09-20 17:32] LABS: Anion Gap 24 mmol/L; Blood Urea Nitrogen 27 mg/dL (9-20); Calcium 9.8 mg/dL (8.4-10.2); Carbon Dioxide 13 mmol/L (22-30); Chloride 116.4 mmol/L (98-107); Glucose 112 mg/dL (75-100); Potassium 3.7 mmol/L (3.6-5.0); Sodium 150 mmol/L (137-145)
[2016-09-20] MEDS ORDERED: KCL 20 MEQ in D5W 1,000 ML IV SCH (21:45)
[2016-09-20] MEDS: BROVANA NEBU IH SCH (22:23)
[2016-09-20] MEDS: PULMICORT IH SCH (22:24)
[2016-09-20 23:37] LABS: Anion Gap 23 mmol/L; BUN/Creatinine Ratio 17.69; Blood Urea Nitrogen 23 mg/dL (9-20); Calcium 9.6 mg/dL (8.4-10.2); Carbon Dioxide 14 mmol/L (22-30); Glucose 150 mg/dL (75-100); Potassium 3.6 mmol/L (3.6-5.0); Sodium 146 mmol/L (137-145)
--- NOTE | 2016-09-21 02:00 | Admit Criteria Form ---
Admission Criteria Documentation: DIABETES Clinical Indications for Admission to Inpatient Care ([place]/check or initial the applicable condition/criteria) Admission is indicated by 1 or more of the following(1)(2)(3)(4)(5): [X]a) Diabetic ketoacidosis as indicated by ALL the following(9): [X]i) Hyperglycemia (eg, plasma glucose greater than 200 mg/ dL (11.1 mmol/L)) [X]ii) Acidosis (eg, arterial or venous pH less than 7.30, serum bicarbonate level less than 15 mEq/L (mmol/L)) [A] [X]iii) Moderate ketonuria or ketonemia [ ]b) Hyperglycemic hyperosmolar state as indicated by ALL of the following: [ ]i) Plasma glucose greater than 600 mg/dL (33.3 mmol/L) [ ]ii) Serum osmolality greater than 320 mOsm/kg (mmol/kg) [ ]iii) Neurologic dysfunction (eg, stupor, coma, hemiparesis , seizure)(14) [ ]c) Hyperglycemia requiring inpatient care as indicated by 1 or more of the following: [ ]i) Altered mental status that is severe or persistent [ ]ii) Dehydration that is severe or persistent [ ]iii) Vomiting that is severe or persistent [ ]iv) Unexplained fever or severe infection [ ]v) Significant electrolyte abnormality(e.g., hypokalemia, hyperkalemia, hypernatremia) not responsive to outpatient and observation care treatment Extended stay beyond goal length of stay may be needed for(3)(20) [ ]a) Treatment of precipitating causes(2) [ ]b) Development of significant hypoglycemia(22)(23) [ ]c) Complications of treatment(24) [ ]d) Complications of decompensated diabetes (e.g., acute gastric dilatation, persistent metabolic or neurologic derangement) (25) [ ]e) Active Comorbidities [ ]f) Older patients The original [employer] content created by [employer] has been revised. The portions of the content which have been revised are identified through the use of italic text or in bold,and [facility] has neither reviewed nor approved the modified material. All other unmodified content is copyright [employer] [facility]. Please see references footnoted in the original [facility] edition 2017 Admission Criteria Met: Yes
[2016-09-21 04:23] LABS: Anion Gap 19 mmol/L; BUN/Creatinine Ratio 15.71; Blood Urea Nitrogen 22 mg/dL (9-20); Calcium 9.2 mg/dL (8.4-10.2); Carbon Dioxide 17 mmol/L (22-30); Chloride 115.3 mmol/L (98-107); Glucose 134 mg/dL (75-100); Magnesium 2.4 mg/dL (1.7-2.3); Phosphorous 2.9 mg/dL (2.5-4.5); Potassium 3.6 mmol/L (3.6-5.0); Sodium 148 mmol/L (137-145)
[2016-09-21] MEDS: PULMICORT IH SCH ×2 (09:32→21:32)
[2016-09-21] MEDS: BROVANA NEBU IH SCH (09:32)
[2016-09-21] MEDS ORDERED: PROVENTIL IH PRN (09:38)
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
[2016-09-21 10:48] LABS: Anion Gap 18 mmol/L; BUN/Creatinine Ratio 16.15; Blood Urea Nitrogen 21 mg/dL (9-20); Calcium 9.3 mg/dL (8.4-10.2); Carbon Dioxide 19 mmol/L (22-30); Chloride 114.1 mmol/L (98-107); Glucose 101 mg/dL (75-100); Potassium 3.3 mmol/L (3.6-5.0); Sodium 148 mmol/L (137-145)
[2016-09-21] MEDS: KEPPRA PO SCH ×2 (10:50→21:11)
[2016-09-21] MEDS: KCL 10MEQ/100ML 10 MEQ/100 ML BAG IV SCH ×4 (11:52→17:37)
[2016-09-21] MEDS: NACL 0.45% 1000 ML 1,000 ML IV SCH (11:56)
[2016-09-21] MEDS: NOVOLOG SUB-Q SCH ×3 (12:12→21:55)
--- NOTE | 2016-09-21 12:37 | Event Note ---
Date: 09/21/16
--- NOTE | 2016-09-21 14:07 | Consultation ---
History of Present Illness Consult date: 09/21/16 Requesting physician: JOHNNY GIL Reason for consult: other (DKA) History of present illness: PULMONARY/CCM CONSULT NOTE (Full dictation # [id number]) Please see dictated notes for full details Medications and Allergies Allergies Allergy/AdvReac Type Severity Reaction Status Date / Time No Known Allergies Allergy Unverified 09/08/16 07:46 Home Medications Medication Instructions Recorded Confirmed Last Taken Type levETIRAcetam [Keppra TAB] 500 mg PO BID #60 tablet 09/10/16 09/19/16 Unknown Rx ALBUTEROL Inhaler [Proair] 2 puff IH DAILY 09/19/16 09/19/16 09/19/16 History 2 PUFF Beclomethasone Dipropionate [Qvar] 2 puff IH DAILY 09/19/16 09/19/16 09/19/16 History 2PUFF Metformin HCl [Glucophage] 500 mg PO BID 09/19/16 09/19/16 Unknown History glipiZIDE [Glucotrol] 5 mg PO BID 09/19/16 09/19/16 Unknown History Active Meds: Active Medications Al Hydrox/Mg Hydrox/Simethicone (Alum-Mag Hydrox-Simeth [id number]/5ml) 30 ml PO Q4H PRN PRN Reason: Indigestion Albuterol (Proventil) 2.5 mg IH Q4HRT PRN PRN Reason: Shortness Of Breath Arformoterol Tartrate (Brovana Nebu) 15 mcg IH Q12HRT HARI Bisacodyl (Dulcolax) 10 mg [place] QDAY PRN PRN Reason: constipation unrelieved by MOM Budesonide (Pulmicort) 0.5 mg IH Q12HRT HARI Dextrose (D50w (25gm)) 0 ml IV ONCE PRN PRN Reason: Hypoglycemia Sodium Chloride (Nacl 0.45% 1000 Ml) 1,000 mls @ 100 mls/hr IV DIRECT HARI Last Admin: 09/21/16 11:56 Dose: 100 mls/hr Potassium Chloride (Kcl 10meq/100ml) 10 meq in 100 mls @ 100 mls/hr IV Q1H HARI Stop: 09/21/16 15:59 Last Admin: 09/21/16 13:31 Dose: 100 mls/hr Insulin Aspart (Novolog) 0 units SUB-Q ACHS HARI PRN Reason: Protocol Last Admin: 09/21/16 12:12 Dose: 1 units Insulin Human Isoph/Insulin Regular (Novolin 70/30) 15 unit SUB-Q BIDDIAB HARI Levetiracetam (Keppra) 500 mg PO BID HARI Last Admin: 09/21/16 10:50 Dose: 500 mg Magnesium Hydroxide (Milk Of Magnesia) 30 ml PO Q4H PRN PRN Reason: Constipation Physical Examination Vital signs: Vital Signs Temp Pulse BP Pulse Ox 95 F L 93 H 156/94 100 09/19/16 14:22 09/19/16 14:22 09/19/16 14:22 09/19/16 14:22 Results - Laboratory Findings CBC and BMP: 09/19/16 18:36 09/21/16 10:21 ABG POC ABG pH 7.051 (7.35-7.45) L 09/19/16 16:35 POC ABG pCO2 11.4 (35-45) L 09/19/16 16:35 POC ABG pO2 136 (80-105) H 09/19/16 16:35 POC ABG HCO3 3.2 09/19/16 16:35 POC ABG Total CO2 < 5 09/19/16 16:35 POC ABG O2 Sat 98 09/19/16 16:35 Abnormal lab findings: Abnormal Labs 09/19/16 09/19/16 09/19/16 17:27 18:36 18:36 WBC 11.2 H RBC 5.56 H Hgb 15.9 H Hct 50.0 H [place] % (Auto) 8.0 H [place] # 0.9 H Seg Neutrophils % 76.3 H Seg Neutrophils # 8.5 H Sodium 147 H Potassium Chloride 108.2 H Carbon Dioxide 7 L* BUN 33 H Creatinine 2.0 H Glucose 227 H POC Glucose 362 H Hemoglobin A1c Phosphorus Magnesium LDL Cholesterol Direct 09/19/16 09/19/16 09/19/16 18:36 18:53 19:54 WBC RBC Hgb Hct [place] % (Auto) [place] # Seg Neutrophils % Seg Neutrophils # Sodium Potassium Chloride Carbon Dioxide BUN Creatinine Glucose POC Glucose 467 H 187 H Hemoglobin A1c Phosphorus 2.10 L D Magnesium 2.60 H LDL Cholesterol Direct 09/19/16 09/19/16 09/19/16 20:57 21:55 22:04 WBC RBC Hgb Hct [place] % (Auto) [place] # Seg Neutrophils % Seg Neutrophils # Sodium 146 H Potassium Chloride 109.7 H Carbon Dioxide 8 L* BUN 35 H Creatinine 2.0 H Glucose 163 H POC Glucose 136 H 162 H Hemoglobin A1c Phosphorus Magnesium LDL Cholesterol Direct 09/19/16 09/19/16 09/20/16 22:29 22:57 00:00 WBC RBC Hgb Hct [place] % (Auto) [place] # Seg Neutrophils % Seg Neutrophils # Sodium Potassium 5.4 H Chloride 108.7 H Carbon Dioxide 8 L* BUN 33 H Creatinine 2.0 H Glucose 168 H POC Glucose 156 H 193 H Hemoglobin A1c Phosphorus Magnesium LDL Cholesterol Direct 09/20/16 09/20/16 09/20/16 01:00 02:05 03:02 WBC RBC Hgb Hct [place] % (Auto) [place] # Seg Neutrophils % Seg Neutrophils # Sodium Potassium Chloride Carbon Dioxide BUN Creatinine Glucose POC Glucose 190 H 122 H 144 H Hemoglobin A1c Phosphorus Magnesium LDL Cholesterol Direct 09/20/16 09/20/16 09/20/16 04:04 04:56 06:08 WBC RBC Hgb Hct [place] % (Auto) [place] # Seg Neutrophils % Seg Neutrophils # Sodium Potassium Chloride Carbon Dioxide BUN Creatinine Glucose POC Glucose 165 H 145 H 130 H Hemoglobin A1c Phosphorus Magnesium LDL Cholesterol Direct 09/20/16 09/20/16 09/20/16 06:10 06:52 07:24 WBC RBC Hgb Hct [place] % (Auto) [place] # Seg Neutrophils % Seg Neutrophils # Sodium 148 H Potassium 5.2 H Chloride 113.4 H 115.1 H Carbon Dioxide 10 L 11 L BUN 30 H 29 H Creatinine 1.7 H 1.6 H Glucose 137 H 143 H POC Glucose 138 H Hemoglobin A1c Phosphorus Magnesium LDL Cholesterol Direct 09/20/16 09/20/16 09/20/16 08:12 10:44 11:24 WBC RBC Hgb Hct [place] % (Auto) [place] # Seg Neutrophils % Seg Neutrophils # Sodium 147 H Potassium Chloride 114.3 H Carbon Dioxide 10 L BUN 31 H Creatinine 1.6 H Glucose 161 H POC Glucose 207 H 169 H Hemoglobin A1c Phosphorus Magnesium LDL Cholesterol Direct 09/20/16 09/20/16 09/20/16 12:30 13:57 14:37 WBC RBC Hgb Hct [place] % (Auto) [place] # Seg Neutrophils % Seg Neutrophils # Sodium 147 H Potassium Chloride 112.2 H Carbon Dioxide 11 L BUN 29 H Creatinine 1.7 H Glucose 192 H POC Glucose 226 H 234 H Hemoglobin A1c Phosphorus Magnesium LDL Cholesterol Direct 09/20/16 09/20/16 09/20/16 15:03 16:05 17:08 WBC RBC Hgb Hct [place] % (Auto) [place] # Seg Neutrophils % Seg Neutrophils # Sodium 150 H Potassium Chloride 116.4 H Carbon Dioxide 13 L BUN 27 H Creatinine Glucose 112 H POC Glucose 182 H 252 H Hemoglobin A1c Phosphorus Magnesium LDL Cholesterol Direct 09/20/16 09/20/16 09/20/16 17:40 17:44 19:15 WBC RBC Hgb Hct [place] % (Auto) [place] # Seg Neutrophils % Seg Neutrophils # Sodium Potassium Chloride Carbon Dioxide BUN Creatinine Glucose POC Glucose 115 H 126 H Hemoglobin A1c 16.1 H Phosphorus Magnesium LDL Cholesterol Direct 09/20/16 09/20/16 09/20/16 20:28 21:59 23:12 WBC RBC Hgb Hct [place] % (Auto) [place] # Seg Neutrophils % Seg Neutrophils # Sodium 146 H Potassium Chloride 113.0 H Carbon Dioxide 14 L BUN 23 H Creatinine Glucose 150 H POC Glucose 168 H 146 H Hemoglobin A1c Phosphorus Magnesium LDL Cholesterol Direct 09/20/16 09/21/16 09/21/16 23:47 02:17 03:31 WBC RBC Hgb Hct [place] % (Auto) [place] # Seg Neutrophils % Seg Neutrophils # Sodium 148 H Potassium Chloride 115.3 H Carbon Dioxide 17 L BUN 22 H Creatinine Glucose 134 H POC Glucose 151 H 173 H Hemoglobin A1c Phosphorus Magnesium LDL Cholesterol Direct 09/21/16 09/21/16 09/21/16 03:31 04:10 05:56 WBC RBC Hgb Hct [place] % (Auto) [place] # Seg Neutrophils % Seg Neutrophils # Sodium Potassium Chloride Carbon Dioxide BUN Creatinine Glucose POC Glucose 174 H 133 H Hemoglobin A1c Phosphorus Magnesium 2.40 H LDL Cholesterol Direct 135 H 09/21/16 10:21 WBC RBC Hgb Hct [place] % (Auto) [place] # Seg Neutrophils % Seg Neutrophils # Sodium 148 H Potassium 3.3 L Chloride 114.1 H Carbon Dioxide 19 L BUN 21 H Creatinine Glucose 101 H POC Glucose Hemoglobin A1c Phosphorus Magnesium LDL Cholesterol Direct
[2016-09-21] MEDS: PEPCID PO SCH (16:13)
[2016-09-21] MEDS ORDERED: BROVANA NEBU IH SCH (20:00)
[2016-09-21] MEDS ORDERED: LOVENOX SUB-Q SCH (22:00)
[2016-09-22 06:14] LABS: Anion Gap 21 mmol/L; BUN/Creatinine Ratio 13.33; Blood Urea Nitrogen 16 mg/dL (9-20); Calcium 9.2 mg/dL (8.4-10.2); Carbon Dioxide 20 mmol/L (22-30); Chloride 107.8 mmol/L (98-107); Glucose 126 mg/dL (75-100); Potassium 3.6 mmol/L (3.6-5.0); Sodium 145 mmol/L (137-145)
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
[2016-09-22] MEDS: PULMICORT IH SCH (07:26)
[2016-09-22 08:09] VITALS: BP 126/74
[2016-09-22] MEDS: NOVOLOG SUB-Q SCH (08:18)
[2016-09-22] MEDS: NACL 0.45% 1000 ML 1,000 ML IV SCH (08:57)
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
[2016-09-22] MEDS: KEPPRA PO SCH (09:28)
[2016-09-22] MEDS: PEPCID PO SCH (09:28)
== END 2016-09-22 13:00 | disposition home or self-care (01) | DRG 637 ==
LOC: ED 12:05 → CC1 17:19 → 3A 09-21 19:43
PROVIDERS: ADMIT Internal Medicine; ATTEND Internal Medicine
PROC: 4A033R1 Measurement of Arterial Saturation, Peripheral, Percutaneous Approach (ICD-10-PCS; principal; 2016-09-19)
DX: E13.10 Other specified diabetes mellitus with ketoacidosis without coma (principal); N17.0 Acute kidney failure with tubular necrosis; G93.41 Metabolic encephalopathy; E87.0 Hyperosmolality and hypernatremia; M13.851 Other specified arthritis, right hip; I10 Essential (primary) hypertension; G40.909 Epilepsy, unspecified, not intractable, without status epilepticus; J44.9 Chronic obstructive pulmonary disease, unspecified; E87.5 Hyperkalemia; E83.39 Other disorders of phosphorus metabolism; E86.0 Dehydration; V89.2XXA Person injured in unspecified motor-vehicle accident, traffic, initial encounter; Y93.89 Activity, other specified; Y92.89 Other specified places as the place of occurrence of the external cause; Y99.8 Other external cause status
CPT/HCPCS: 36415; 70450; 80048; 80053; 80061; 80307; 80320; 81001; 82010; 82803; 82962; 83036; 83735; 84100; 85025; 93005; 93010; 94640; 99291; G0480; J1650; J1815; J1818; J3480; J7030; J7040; J7070